=== PATIENT | male | born 1955 | race Caucasian/White ===

== ENCOUNTER → 2021-02-19 | Outpatient (CLI) | payer MEDICARE ==
[~2021-02-19] MED LIST: 'zithromax250 MG PO; GALZIN50 MG PO; NKHM PO; PREDNISONE20 M1 PO; PROZAC40 MG PO; VITAMIN C1000 M5 PO; VITAMIN D350 MCG PO; ZOFRAN4 MG PO
== END | disposition home or self-care (01) ==
LOC: RAD 14:04 → LAB 14:04
PROVIDERS: ATTEND Nurse Practitioner Family
DX: J92.9 Pleural plaque without asbestos (principal); R05.9 Cough, unspecified; R19.7 Diarrhea, unspecified; M54.6 Pain in thoracic spine; Z20.822 Contact with and (suspected) exposure to COVID-19